=== PATIENT | male | born 1995 | race Caucasian/White ===

== ENCOUNTER 2016-10-10 09:12 | Inpatient (IN) | payer OTHER ==
[~2016-10-10] VITALS: Ht 182.9 cm; Wt 94.6 kg
[2016-10-10] MEDS ORDERED: ALBUTEROL SULF 2.5 MG/0.5ML(0.5%) NEB SOLN ONE (09:24)
[2016-10-10] MEDS ORDERED: IPRATROPIUM BROM 0.5 MG/2.5ML INH SOL ONE (09:25)
[2016-10-10] MEDS ORDERED: IPRATROPIUM BROM 0.5 MG/2.5ML INH SOL NEB ONE (09:30)
[2016-10-10] MEDS ORDERED: ALBUTEROL SULF 2.5 MG/0.5ML(0.5%) NEB SOLN NEB ONE (09:30)
[2016-10-10] MEDS ORDERED: SODIUM CHLORIDE 0.9% 1,000 ML IV ONE (09:42)
[2016-10-10] MEDS ORDERED: cefTRIAXone 1GM/50ML D5W 50 ML IV ONE ×2 (09:45→14:30)
[2016-10-10] MEDS ORDERED: DEXAMETHASONE SOD PHOS 10MG/1ML VIAL INJ IV ONE (09:45)
[2016-10-10 10:23] LABS: DEFINITIVE VIEW TRANSMISSION; Hemoglobin 9.1 g/dL (13.5-17.5); Mean Corpuscular Hemoglobin 27.5 pg (28.0-32.0); Mean Corpuscular Volume 88.4 fL (80.0-100.0); Mean Platelet Volume 7.8 fL (7.4-10.4); SUSPECT VIEW TRANSMISSION
[2016-10-10] MEDS ORDERED: DEX4T PO (10:23)
[2016-10-10] MEDS ORDERED: LACT10SO PO (10:23)
[2016-10-10] MEDS ORDERED: WARF5TAB71 PO (10:23)
[2016-10-10] MEDS ORDERED: HYDR2TAB27 PO (10:23)
[2016-10-10] MEDS ORDERED: NORT25CA PO (10:23)
[2016-10-10] MEDS ORDERED: DOCU-94 PO (10:23)
[2016-10-10] MEDS ORDERED: IPRASOL39 NEB (10:23)
[2016-10-10] MEDS ORDERED: SERT-275 PO (10:23)
[2016-10-10 10:25] LABS: Hematocrit 29.1 % (41.0-53.0); Platelet Count (auto) 541 10^3/uL (140-450); White Blood Cell 21.8 10^3/uL (4.4-10.8)
[2016-10-10 10:37] LABS: Lactic Acid 3.4 mmol/L (0.4-2.0)
[2016-10-10 10:42] LABS: Albumin 2.5 g/dL (3.4-5.0); BUN/Creatinine Ratio 23.1; Bilirubin, Total 0.3 mg/dL (0.2-1.0); Calcium 9.1 mg/dL (8.5-10.1); Potassium 4.4 mmol/L (3.5-5.1); Total Protein 7.2 g/dL (6.4-8.2)
[2016-10-10 10:53] LABS: Red Cell Distribution Width 21.1 % (11.6-16.0)
[2016-10-10 10:55] LABS: B-Type Natriuretic Peptide 96.35 pg/mL (0-100); Metamyelocytes % 0; Myelocytes % 0; Promyelocytes % 0; Reactive Lymphocytes 0
[2016-10-10 11:00] LABS: Temperature: 22.2 C (20.0-25.0)
[2016-10-10 11:07] LABS: REFLEX LACTIC ACID YES OR NO YES
[2016-10-10 11:43] LABS: Anisocytosis Slight; Giant Platelets Few; Large Platelets FEW; Platelet Estimate Increased
[2016-10-10 11:44] LABS: Ovalocytes FEW; Tear Drop Cells FEW
[2016-10-10 13:18] LABS: Urine Bilirubin Negative (Negative); Urine Blood Negative /uL (Negative); Urine Color Yellow (Yellow); Urine Glucose Normal (Normal); Urine Mucus FEW (None Seen); Urine Nitrite Negative (Negative); Urine RBC <1 /hpf (0 - 3)
[2016-10-10 13:19] LABS: Urine Ketone 1+ (Negative)
[2016-10-10 13:26] LABS: Lactic Acid 2.7 mmol/L (0.4-2.0)
[2016-10-10 13:32] LABS: REFLEX LACTIC ACID YES OR NO NO
[2016-10-10] MEDS ORDERED: HYDROmorphone HCL 2 MG/ML VL IV PRN (14:30)
[2016-10-10] MEDS ORDERED: HALOPERIDOL 1 MG TAB PO PRN (14:30)
[2016-10-10] MEDS ORDERED: PATIENTS OWN MEDICATION TOP PRN ×2 (14:30)
[2016-10-10] MEDS ORDERED: LACTULOSE 20Gm/30ML SOLN PO PRN (14:30)
[2016-10-10] MEDS ORDERED: SODIUM CHLORIDE 0.9% 1,000 ML IV SCH (14:31)
[2016-10-10] MEDS ORDERED: guaiFENesin-COD 10 ML UD PO ONE (14:45)
[2016-10-10] MEDS ORDERED: ACETAMINOPHEN 325 MG TAB PO PRN (14:45)
[2016-10-10] MEDS ORDERED: methylPREDNISolone SOD SUCC 125 MG/2 ML VL IV ONE (14:45)
[2016-10-10] MEDS ORDERED: DIBUCAINE 1% TOP PRN (14:45)
[2016-10-10] MEDS ORDERED: DOCUSATE SOD 100 MG CAP PO PRN (14:45)
[2016-10-10] MEDS ORDERED: HYDROcodone-ACET 5/325MG TAB PO PRN (14:45)
[2016-10-10] MEDS ORDERED: SERTRALINE HCL 50 MG TAB PO ONE (14:45)
[2016-10-10] MEDS ORDERED: MORPHINE SULF INJ 2 MG/ML SYRINGE 1ML IV PRN (14:45)
[2016-10-10] MEDS ORDERED: TEMAZEPAM 15 MG CAP PO PRN (14:45)
[2016-10-10] MEDS ORDERED: ONDANSETRON HCL 4 MG/2 ML VIAL IV PRN (14:45)
[2016-10-10] MEDS ORDERED: NITROGLYCERIN 0.4 MG SL TAB SL PRN (14:45)
[2016-10-10] MEDS ORDERED: MULTIPLE VITAMIN TAB PO ONE (15:00)
[2016-10-10 16:16] VITALS: BP 121/73
[2016-10-10 16:26] LABS: Partial Thromboplastin Time 49.5 sec (22.64-33.71)
[2016-10-10 16:32] LABS: Lactic Acid 3.7 mmol/L (0.4-2.0)
[2016-10-10 16:43] LABS: Prothrombin Time 54.7 sec (9.37-12.3)
[2016-10-10 16:45] LABS: INR 5.31 (0.9-1.15)
[2016-10-10 16:54] VITALS: BP 121/73
[2016-10-10 17:00] LABS: REFLEX LACTIC ACID YES OR NO YES
[2016-10-10] MEDS ORDERED: IPRATROPIUM BROM 0.5 MG/2.5ML INH SOL NEB SCH (18:00)
[2016-10-10] MEDS ORDERED: ALBUTEROL SULF 2.5 MG/0.5ML(0.5%) NEB SOLN NEB SCH (18:00)
[2016-10-10] MEDS ORDERED: PATIENTS OWN MEDICATION PO SCH ×2 (18:00)
[2016-10-10] MEDS ORDERED: guaiFENesin-COD 10 ML UD PO SCH (18:00)
[2016-10-10] MEDS: methylPREDNISolone SOD SUCC 125 MG/2 ML VL IV SCH ×2 (18:00→18:53)
[2016-10-10 19:31] LABS: Lactic Acid 3.9 mmol/L (0.4-2.0)
[2016-10-10 19:45] LABS: REFLEX LACTIC ACID YES OR NO NO
[2016-10-10] MEDS ORDERED: SENNA 8.6 MG TAB PO SCH (22:00)
[2016-10-10] MEDS ORDERED: NORTRIPTYLINE HCL 25 MG CAP PO SCH (22:00)
[2016-10-11] MEDS ORDERED: cefTRIAXone 1GM/50ML D5W 50 ML IV SCH (09:00)
[2016-10-11] MEDS ORDERED: SERTRALINE HCL 50 MG TAB PO SCH (10:00)
[2016-10-11] MEDS ORDERED: MULTIPLE VITAMIN TAB PO SCH (10:00)
== END 2016-10-10 19:55 | disposition expired | DRG 180 ==
LOC: EDBD 09:12 → ER 09:19 → CENTRAL 09:20
PROVIDERS: ADMIT Internal Medicine; ATTEND Internal Medicine
PROC: 5A09357 Assistance with Respiratory Ventilation, Less than 24 Consecutive Hours, Continuous Positive Airway Pressure (ICD-10-PCS; principal; 2016-10-10)
DX: C78.01 Secondary malignant neoplasm of right lung (principal); J96.01 Acute respiratory failure with hypoxia; E43 Unspecified severe protein-calorie malnutrition; C41.9 Malignant neoplasm of bone and articular cartilage, unspecified; E87.2 Acidosis; Z51.5 Encounter for palliative care; J90 Pleural effusion, not elsewhere classified; D63.8 Anemia in other chronic diseases classified elsewhere; Z68.28 Body mass index [BMI] 28.0-28.9, adult
CPT/HCPCS: 36415; 36600; 71010; 80053; 81001; 82805; 83605; 83735; 83880; 85007; 85027; 85049; 85610; 85730; 87040; 93005; 94660; 96365; 96375; J0696; J1100